=== PATIENT | male | born 1960 | race Caucasian/White ===

== ENCOUNTER → 2017-06-04 | Outpatient (CLI) | payer OTHER ==
--- NOTE | 2017-06-04 16:09 | RAD ---
EXAM DESCRIPTION: Hand, right 3 Views CLINICAL HISTORY: 56 yearsMale, HAND PAIN COMPARISON: 05/14/2013. IMPRESSION: 2 views of the right hand were obtained. There is no evidence of acute fracture, dislocation, or destructive osseous lesion. Alignment appears maintained. No high-grade degenerative changes. 3 metallic density foreign bodies are again demonstrated. The largest of which is in the radial aspect of the proximal second digit measuring 3.8 mm. Smaller metallic fragments in the soft tissues between the third and fourth metacarpal heads and in the third digit along the dorsal aspect of the proximal interphalangeal joint. Electronically signed by: Law Campos MD 06/04/2017 4:08 PM CDT
== END | disposition home or self-care (01) ==
LOC: RAD 08:25
PROVIDERS: ATTEND Orthopaedic Surgery
DX: M79.641 Pain in right hand (principal)

== ENCOUNTER → 2018-02-15 | Outpatient (CLI) | payer BC | LOC: GMAB 10:41 | PROVIDERS: ATTEND Family Medicine | DX: Z00.01 Encounter for general adult medical examination with abnormal findings (principal) ==

== ENCOUNTER → 2018-12-27 | Outpatient (CLI) | payer BC | LOC: GMAE 14:18 | PROVIDERS: ATTEND Family Medicine | DX: R10.9 Unspecified abdominal pain (principal) ==

== ENCOUNTER 2019-08-30 14:26 | Emergency (ER) | payer BC, OTHER ==
[2019-08-30] MEDS ORDERED: IBUPROFEN 200 MG TAB PO ONE (14:39)
--- NOTE | 2019-08-30 14:42 | ED.PDOC ---
History of Present Illness - General Chief Complaint: Lower Extremity Injury Stated Complaint: right heel pain Time Seen by Provider: 08/30/19 14:36 Source: patient, RN notes reviewed, Vital Signs reviewed Exam Limitations: no limitations - History of Present Illness Initial Comments: States he jumped off a ladder from about 5 foot high 3o minutes [employer] and landed on right foot. Report pain to right heel. Had boots on during the accident. Denies hitting head, LOC, neck or back pain or other injuries. Has been bearing weight with pain. Denies other concerns. Occurred: just prior to arrival Improving Factors: nothing Worsening Factors: movement Allergies/Adverse Reactions: Allergies NO KNOWN ALLERGY Allergy (Unverified 01/10/13 20:44) Home Medications: Ambulatory Orders Acetaminophen W/ Codeine [Tylenol W/ CODEINE #3] 1 tablet PO Q6H PRN #20 08/30/19 Review of Systems - Review of Systems Constitutional: Denies: chills, weakness EENTM: Denies: blurred vision Respiratory: Denies: cough, orthopnea, short of breath Gastrointestinal/Abdominal: Denies: abdominal pain, diarrhea, nausea, vomiting Musculoskeletal: Denies: back pain, neck pain Neurological: Denies: headache, paresthesia All other Systems: Reviewed and Negative Past Medical History (General) - Patient Medical History Hx Seizures: No Hx Stroke: No Hx Asthma: No Hx Cardiac Disorders: No Hx Congestive Heart Failure: No Hx Hypertension: Yes Hx Thyroid Disease: No Hx Diabetes: No Hx Gastroesophageal Reflux: No Surgical History: other - Vaccination History Hx Influenza Vaccination: No Family Medical History - Family History Father Family History: Unknown Physical Exam - Physical Exam General Appearance: Alert, Comfortable, No apparent distress Neck: non-tender, full range of motion, other - No C, T, L spine tenderness Cardiovascular/Respiratory: regular rate, rhythm, normal breath sounds, no respiratory distress Gastrointestinal/Abdominal: non-tender Back: no CVA tenderness, no vertebral tenderness Knee: non-tender, no evidence of injury, normal ROM Mental Status: alert Skin: normal color, warm/dry Comments: TTP to lateral right heel. No ankle or distal foot tenderness. No edema, deformity or ecchymosis noted. 2+ DP and PT pulse. Progress - Progress Progress: 08/30/19 15:29 Pt has comminuted right calcaneal fracture by xray. He has no back pain or vertebral tenderness on exam. Will place splint and give crutches. Strict non weight bearing until seen by orthopedics. F/U with ortho for continued evaluation and definitive management. - Results/Orders Results/Orders: Right foot xray IMPRESSION: 3 views of the right foot demonstrate a comminuted acute moderately displaced fracture of the calcaneus. Fracture lines involve the superior, posterior, and plantar cortical surface is. Suspected subtalar joint involvement. CT or MRI recommended to further characterize. The remaining osseous structures show no definite evidence of acute fracture. 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 Departure - Departure Clinical Impression: Calcaneal fracture Qualifiers: Encounter type: initial encounter Calcaneus location: unspecified portion of calcaneus Fracture type: closed Fracture alignment: nondisplaced Laterality: right Qualified Code(s): S92.001A - Unspecified fracture of right calcaneus, initial encounter for closed fracture Time of Disposition: 15:31 Disposition: Discharge to Home or Self Care Condition: Fair Departure Forms: ED Discharge - Pt. Copy, Patient Portal Self Enrollment Instructions: DI for Leg Pain, Heel Fracture (DC) Diet: resume usual diet Activity: other - No weight bearing with right foot. Use crutches at all times Referrals: ERIN ADAM MD [Primary Care Provider] - 1-2 Weeks Alpesh Hernandes MD [Active Staff] - 1-2 Days Prescriptions: Acetaminophen W/ Codeine [Tylenol W/ CODEINE #3] 1 tablet PO Q6H PRN #20 PRN Reason: Pain Home Medications: Ambulatory Orders Acetaminophen W/ Codeine [Tylenol W/ CODEINE #3] 1 tablet PO Q6H PRN #20 08/30/19
--- NOTE | 2019-08-30 15:11 | RAD ---
EXAM DESCRIPTION: CR Foot,Right 3 Views CLINICAL HISTORY: 58 yearsMale, injury COMPARISON: None. IMPRESSION: 3 views of the right foot demonstrate a comminuted acute moderately displaced fracture of the calcaneus. Fracture lines involve the superior, posterior, and plantar cortical surface is. Suspected subtalar joint involvement. CT or MRI recommended to further characterize. The remaining osseous structures show no definite evidence of acute fracture. 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 Electronically signed by: Law Campos MD 08/30/2019 3:09 PM [facility]
[2019-08-30 16:12] VITALS: BP 150/103; TEMP 96.5; O2SAT 97
== END 2019-08-30 16:03 | disposition home or self-care (01) ==
LOC: ER 14:26
DX: S92.001A Unspecified fracture of right calcaneus, initial encounter for closed fracture (principal); I10 Essential (primary) hypertension; W11.XXXA Fall on and from ladder, initial encounter; Y92.9 Unspecified place or not applicable

== ENCOUNTER → 2019-12-06 | Outpatient (CLI) | payer OTHER | LOC: GMAE 10:49 | PROVIDERS: ATTEND Family Medicine | DX: Z00.00 Encounter for general adult medical examination without abnormal findings (principal) ==